=== PATIENT | female | born 1970 | race American Indian/Alaskan Native ===

== ENCOUNTER 2016-12-24 22:01 | Emergency (ER) | payer MEDICARE ==
[2016-12-24 23:10] LABS: Basophils % (Auto) 1.2 % (0.0-1.8); Eosinophils % (Auto) 7.5 % (0.0-4.3); Hematocrit 37.7 % (30.3-42.9); Hemoglobin 12.6 gm/dl (10.1-14.3); Mean Corpuscular HGB Conc 33 % (30-34); Mean Corpuscular Hemoglobin 32 pg (28-32); Mean Corpuscular Volume 95 fl (79-97); Platelet Count 234 K/mm3 (140-440); Red Blood Count 3.96 M/mm3 (3.65-5.03); Red Cell Distribution Width 14.1 % (13.2-15.2); White Blood Count 3.9 K/mm3 (4.5-11.0)
[2016-12-24 23:29] LABS: Anion Gap 17 mmol/L; BUN/Creatinine Ratio 12.85; Blood Urea Nitrogen 9 mg/dL (7-17); Calcium 8.2 mg/dL (8.4-10.2); Carbon Dioxide 23 mmol/L (22-30); Glucose 80 mg/dL (65-100); Potassium 3.5 mmol/L (3.6-5.0); Sodium 136 mmol/L (137-145)
[2016-12-25 01:29] LABS: Urine Drugs of Abuse Note Disclamer
[2016-12-25 02:13] LABS: Bacteria,Urine 1+ /HPF (Negative); Bilirubin,Urine NEG (Negative); Blood,Urine NEG (Negative); Ketones,Urine NEG (Negative); Mucus,Urine FEW /HPF; Nitrite,Urine NEG (Negative); Protein,Urine <15 mg/dL mg/dL (Negative); Urobilinogen,Urine < 2.0 mg/dL (<2.0)
[2016-12-25 02:14] LABS: Leukocyte Esterase,Urine MOD (Negative)
--- NOTE | 2016-12-25 07:19 | Emergency Department Report ---
ED Psych HPI - General Chief Complaint: Psych Stated Complaint: MED CLEARANCE Time Seen by Provider: 12/25/16 07:12 Source: patient Mode of arrival: Ambulatory Limitations: No Limitations - History of Present Illness Initial Comments: 46-year-old female presents to the emergency department from [facility] for medical clearance. Patient states that she is looking for alcohol detox. Patient states she has been drinking beer for the past one year. She normally drinks approximately 12 beers a day. Her last drink was yesterday afternoon at approximately 4 PM before going to [facility]. Patient describes a generalized ill feeling along with fatigue. She denies headache, chest pain, abdominal pain, nausea, or vomiting. There are no other complaints. -: Gradual, days(s) (1) Associated Psychiatric Symptoms: none History of same: Yes Quality: constant Improves With: none Worsens With: none Context: recent alcohol abuse Associated Symptoms: denies other symptoms Treatments Prior to Arrival: none - Related Data Home Medications Medication Instructions Recorded Confirmed Last Taken Dolutegravir Sodium [Tivicay] 10 mg PO DAILY 12/25/16 12/25/16 1 Day Ago 10 Emtricitab/Rilpiviri/Tenof Ala 1 each PO DAILY 12/25/16 12/25/16 1 Day Ago [Odefsey Tablet] 1 Zolpidem [Ambien] 10 mg PO QHS 12/25/16 12/25/16 1 Day Ago 10 traZODone [Desyrel] 50 mg PO QHS 12/25/16 12/25/16 1 Day Ago 50 valACYclovir [Valtrex] 500 mg PO BID 12/25/16 12/25/16 1 Day Ago 500 Allergies Allergy/AdvReac Type Severity Reaction Status Date / Time No Known Allergies Allergy Verified 12/24/16 22:33 ED Review of Systems ROS: Stated complaint: MED CLEARANCE Other details as noted in HPI Comment: All other systems reviewed and negative Psychiatric: as per HPI (substance abuse). denies: homicidal thoughts, suicidal thoughts ED Past Medical Hx - Past Medical History Previous Medical History?: Yes Hx HIV: Yes - Surgical History Past Surgical History?: Yes Additional Surgical History: Hammer toe both feet, Tonsils, Rt Lower leg - Family History Family history: no significant - Social History Smoking Status: Current Every Day Smoker Substance Use Type: Alcohol - Medications Home Medications: Home Medications Medication Instructions Recorded Confirmed Last Taken Type Dolutegravir Sodium [Tivicay] 10 mg PO DAILY 12/25/16 12/25/16 1 Day Ago History 10 Emtricitab/Rilpiviri/Tenof Ala 1 each PO DAILY 12/25/16 12/25/16 1 Day Ago History [Odefsey Tablet] 1 Zolpidem [Ambien] 10 mg PO QHS 12/25/16 12/25/16 1 Day Ago History 10 traZODone [Desyrel] 50 mg PO QHS 12/25/16 12/25/16 1 Day Ago History 50 valACYclovir [Valtrex] 500 mg PO BID 12/25/16 12/25/16 1 Day Ago History 500 ED Physical Exam - General Limitations: No Limitations General appearance: alert, in no apparent distress - Head Head exam: Present: atraumatic, normocephalic - Eye Eye exam: Present: normal appearance, PERRL, EOMI - ENT ENT exam: Present: normal exam, normal orophraynx, mucous membranes moist - Neck Neck exam: Present: normal inspection, full ROM. Absent: tenderness - Respiratory Respiratory exam: Present: normal lung sounds bilaterally. Absent: respiratory distress - Cardiovascular Cardiovascular Exam: Present: regular rate, normal rhythm, normal heart sounds - GI/Abdominal GI/Abdominal exam: Present: soft, normal bowel sounds. Absent: distended, tenderness - Extremities Exam Extremities exam: Present: normal inspection, full ROM. Absent: tenderness - Back Exam Back exam: Present: normal inspection, full ROM. Absent: tenderness - Neurological Exam Neurological exam: Present: alert, oriented X3. Absent: motor sensory deficit - Skin Skin exam: Present: warm, dry, intact ED Course Vital Signs 12/24/16 12/25/16 12/25/16 22:20 02:25 05:33 Temperature 98.1 F 98.1 F Pulse Rate 89 87 100 H Respiratory 14 16 18 Rate Blood Pressure 149/107 Blood Pressure 138/97 155/105 [Right] O2 Sat by Pulse 100 100 98 Oximetry 12/25/16 07:06 Temperature 98.6 F Pulse Rate 84 Respiratory 16 Rate Blood Pressure Blood Pressure 126/93 [Right] O2 Sat by Pulse 99 Oximetry ED Medical Decision Making - Lab Data Result diagrams: 12/24/16 22:54 12/24/16 22:54 - Medical Decision Making Laboratory results reviewed. Patient has been medically cleared. Patient has been evaluated by mental health and has been accepted at [facility]. Patient is currently awaiting transport. Patient is voluntary. - Differential Diagnosis alcohol abuse, alcohol intoxication Critical care attestation.: If time is entered above; I have spent that time in minutes in the direct care of this critically ill patient, excluding procedure time. ED Disposition Clinical Impression: Alcohol abuse Disposition: DC/TX PSY HOSP/PSY UNIT Is pt being admited?: No Condition: Stable Instructions: Abuse of Alcohol (ED) Referrals: TOBIAS YANEZ MD [Primary Care Provider] - 3-5 Days Time of Disposition: 08:53
[2016-12-25] MEDS: BENADRYL PO ONE (07:46)
[2016-12-25 07:55] LABS: Alanine Aminotransferase 9 units/L (7-56); Albumin 3.9 g/dL (3.9-5); Albumin/Globulin Ratio 1.3 %; Alkaline Phosphatase 57 units/L (35-129); Bilirubin,Total 0.3 mg/dL (0.1-1.2)
[2016-12-25 08:01] LABS: Bilirubin,Direct < 0.2 mg/dL (0-0.2)
[2016-12-25 09:16] VITALS: BP 129/84
== END 2016-12-25 09:46 ==
LOC: ED 22:01 → EEVIPCON 22:01 → ED 12-25 09:46
DX: F10.129 Alcohol abuse with intoxication, unspecified (principal); F17.200 Nicotine dependence, unspecified, uncomplicated; Z21 Asymptomatic human immunodeficiency virus [HIV] infection status
CPT/HCPCS: 36415; 80048; 80074; 80307; 81001; 84703; 85025; 99285; G0480; 80320

== ENCOUNTER 2018-12-18 18:23 | Emergency (ER) | payer MEDICARE ==
--- NOTE | 2018-12-18 18:38 | Emergency Department Report ---
Chief Complaint: Medical Clearance Stated Complaint: MEDICAL CLEARANCE Time Seen by Provider: 12/18/18 18:34 - HPI History of Present Illness: This is a 48 y.o. female that presents to ER for detox from alcohol. [facility] sent patient here for medical clearance. [facility] HIV Patient states she drunk 8 beers today. - Exam Vital Signs: Lab Results 12/18/18 Range/Units 18:35 POC Glucose 86 (70-105) Vital Signs 12/18/18 18:34 Temperature 97.6 F Pulse Rate 83 Respiratory 16 Rate Blood Pressure 131/90 O2 Sat by Pulse 100 Oximetry MSE screening note: Focused history and physical exam performed. Due to findings the following was ordered: labs acc for further evaluation ED Disposition for MSE Condition: Stable
[2018-12-18 19:13] LABS: Basophils % (Auto) 0.3 % (0.0-1.8); Eosinophils # (Auto) 0.2 K/mm3 (0.0-0.4); Eosinophils % (Auto) 9.9 % (0.0-4.3); Hematocrit 36.9 % (30.3-42.9); Hemoglobin 12.8 gm/dl (10.1-14.3); Lymphocytes # (Auto) 0.8 K/mm3 (1.2-5.4); Lymphocytes % (Auto) 35.6 % (13.4-35.0); Mean Corpuscular HGB Conc 35 % (30-34); Mean Corpuscular Volume 96 fl (79-97); Monocytes # (Auto) 0.2 K/mm3 (0.0-0.8); Monocytes % (Auto) 7.6 % (0.0-7.3); Platelet Count 209 K/mm3 (140-440); Red Blood Count 3.85 M/mm3 (3.65-5.03)
[2018-12-18 19:26] LABS: BUN/Creatinine Ratio 10; Blood Urea Nitrogen 6 mg/dL (7-17); Calcium 7.9 mg/dL (8.4-10.2); Hemolysis Index 21
[2018-12-18] MEDS ORDERED: VITAMIN B-1 100 MG, FOLVITE 1 MG, INFUVITE 10 ML in NACL 0.9% 1000 ML 1,000 ML IV ONE (20:00)
--- NOTE | 2018-12-18 20:31 | Emergency Department Report ---
HPI - General Chief Complaint: Medical Clearance Time Seen by Provider: 12/18/18 18:34 - HPI HPI: 48-year-old -[place] female presents to the emergency department from [facility] medical clearance. The patient has a known history of alcohol abuse a nd dependence and was trying to check herself into [facility] for some detox and rehabilitation from her alcohol abuse. However she was visibly intoxicated and there was concern that her alcohol level was too high and so she was sent here for a medical clearance. Patient denies any illicit drug use. She otherwise has a past medical history of HIV for which she says she is compliant with medications. ED Past Medical Hx - Past Medical History Previous Medical History?: Yes Hx HIV: Yes - Surgical History Past Surgical History?: Yes Additional Surgical History: Hammer toe both feet, Tonsils, Rt Lower leg - Social History Smoking Status: Never Smoker Substance Use Type: Alcohol - Medications Home Medications: Home Medications Medication Instructions Recorded Confirmed Last Taken Type No Known Home Medications [No 12/18/18 12/18/18 Unknown History Reported Home Medications] ED Review of Systems ROS: Stated complaint: MEDICAL CLEARANCE Other details as noted in HPI Comment: All other systems reviewed and negative Constitutional: denies: chills, fever Eyes: denies: eye pain, vision change ENT: denies: ear pain, throat pain Respiratory: denies: cough, shortness of breath Cardiovascular: denies: chest pain, palpitations Gastrointestinal: denies: abdominal pain, vomiting Genitourinary: denies: dysuria, discharge Musculoskeletal: denies: back pain, arthralgia Skin: denies: rash, lesions Neurological: denies: headache, weakness Psychiatric: denies: homicidal thoughts, suicidal thoughts Physical Exam - Physical Exam Vital Signs: Vital Signs 12/18/18 18:34 Temperature 97.6 F Pulse Rate 83 Respiratory 16 Rate Blood Pressure 131/90 O2 Sat by Pulse 100 Oximetry Physical Exam: GENERAL: The patient is well-developed well-nourished. HEENT: Normocephalic. Atraumatic. Patient has moist mucous membranes. EYES: Extraocular motions are intact. NECK: Supple. Trachea is midline. CHEST/LUNGS: Clear to auscultation. There is no respiratory distress noted. HEART/CARDIOVASCULAR: Regular. There is no tachycardia. There is no obvious murmur. ABDOMEN: Abdomen is soft, nontender. Patient has normal bowel sounds. There is no abdominal distention. SKIN: Skin is warm and dry. NEURO: The patient is awake, alert, and cooperative but intoxicated. The patient has no focal neurologic deficits. The patient has normal speech. MUSCULOSKELETAL: There is no tenderness or deformity. There is no limitation range of motion. There is no evidence of acute injury. ED Course Vital Signs 12/18/18 18:34 Temperature 97.6 F Pulse Rate 83 Respiratory 16 Rate Blood Pressure 131/90 O2 Sat by Pulse 100 Oximetry ED Medical Decision Making - Lab Data Result diagrams: 12/18/18 19:01 12/18/18 19:01 - Medical Decision Making This patient was sent from [facility], where she was trying to get alcohol detox and rehabilitation, secondary to her current alcohol abuse/intoxication. Patient has a blood alcohol of 0.38. The rest of her lab work is unremarkable. She is awake and cooperative but is obviously intoxicated. She was given a banana bag followed by a liter of IV normal saline fluid. The patient will be seen by the psych ignition specialist to help facilitate his return to work [place], or if necessary a different facility for alcohol detox/rehabilitation. I believe the patient will need to be below 0.20 blood alcohol level before she will be accepted to any facility. Critical Care Time: No Critical care attestation.: If time is entered above; I have spent that time in minutes in the direct care of this critically ill patient, excluding procedure time. ED Disposition Clinical Impression: Alcohol abuse Alcohol intoxication Qualifiers: Complication of substance-induced condition: uncomplicated Qualified Code(s): F10.920 - Alcohol use, unspecified with intoxication, uncomplicated Alcohol dependence Qualifiers: Substance use status: uncomplicated Qualified Code(s): F10.20 - Alcohol dependence, uncomplicated Disposition: DC/TX-65 PSY HOSP/PSY UNIT Is pt being admited?: No Condition: Stable Instructions: Alcohol Intoxication (ED), Abuse of Alcohol (ED) Referrals: PRIMARY CARE, [Primary Care Provider] - 3-5 Days Time of Disposition: 01:38
[2018-12-18 20:33] LABS: Bilirubin,Urine NEG (Negative); Blood,Urine NEG (Negative); Color,Urine Straw (Yellow); Protein,Urine <15 mg/dL mg/dL (Negative); Urobilinogen,Urine < 2.0 mg/dL (<2.0); WBC,Urine < 1.0 /HPF (0.0-6.0)
[2018-12-18] MEDS ORDERED: BENADRYL PO ONE ×2 (20:40→23:21)
[2018-12-18 20:41] LABS: Amphetamine Screen,Urine PRESUMPTIVE NEGATIVE; Benzodiazepines Screen,Urine PRESUMPTIVE NEGATIVE; Cannabinoid Screen,Urine PRESUMPTIVE NEGATIVE; Cocaine Screen,Urine PRESUMPTIVE NEGATIVE; Methadone Screen,Urine PRESUMPTIVE NEGATIVE; Opiate Screen,Urine PRESUMPTIVE NEGATIVE
[2018-12-18] MEDS ORDERED: NACL 0.9% 1000 ML 1,000 ML IV ONE (22:48)
[2018-12-19] MEDS ORDERED: NACL 0.9% 1000 ML 1,000 ML ONE (02:27)
[2018-12-19 09:08] VITALS: BP 143/98
== END 2018-12-19 09:56 ==
LOC: ED 18:23
DX: F10.220 Alcohol dependence with intoxication, uncomplicated (principal); Z21 Asymptomatic human immunodeficiency virus [HIV] infection status
CPT/HCPCS: 36415; 80048; 80307; 81001; 82962; 85025; 96365; 96366; 99283; G0480; J3411; J7030; 80320

== ENCOUNTER 2019-01-08 17:44 | Emergency (ER) | payer MEDICARE ==
[2019-01-08] MEDS ORDERED: ATIVAN IM PRN (19:00)
--- NOTE | 2019-01-08 19:01 | Emergency Department Report ---
ED Alcohol HPI - General Chief Complaint: Alcohol Stated Complaint: ETOH Time Seen by Provider: 01/08/19 18:56 Source: patient, EMS (ems notes not available at time of chart dictation), RN notes reviewed, old records reviewed Mode of arrival: Stretcher Limitations: Other (patient is intoxicated) - History of Present Illness Initial Comments: This is a 48-year-old female. The patient is not known to this provider previously. The patient is apparently brought to the hospital by emergency medical services for alcohol intoxication. Apparently, the patient was found in front of a local psychiatric facility trying to check in for intoxication, but w as sent in for medical clearance. Patient complains of chronic back pain. She makes no complaint of homicidality or suicidality. Patient may have had an oral glucose of 48 prior to arrival. She may be given oral glucose. We do not know because EMS records are not available at this time for evaluation or follow-up. In the emergency room, the patient is sleepy but arousable. She moves 4 extre mities. She complains of back pain. She asked for pain medicine. She may know complete of headache, neck pain, chest pain, abdominal pain or urinary symptoms. She does not complain of homicidality or suicidality. She is not accompanied by anyone. Therefore, collateral history is not available at this time. MD Complaint: alcohol intoxication Last Drink: unknown Chronic Alcohol Use: Yes Previous Visits for Alcohol Intoxication?: Yes - Related Data Previous Rx's Medication Instructions Recorded Last Taken Type Ondansetron [Zofran Odt] 4 mg PO Q8HR PRN #15 tab.rapdis 01/09/19 Unknown Rx chlordiazePOXIDE [Librium] 25 mg PO Q6H PRN #20 capsule 01/09/19 Unknown Rx Allergies Allergy/AdvReac Type Severity Reaction Status Date / Time No Known Allergies Allergy Verified 12/18/18 18:24 ED Review of Systems ROS: Stated complaint: ETOH Other details as noted in HPI Comment: Unobtainable due to pts medical conditions Cardiovascular: denies: chest pain Gastrointestinal: denies: abdominal pain Musculoskeletal: back pain Neurological: weakness Psychiatric: denies: homicidal thoughts, suicidal thoughts ED Past Medical Hx - Past Medical History Previous Medical History?: Yes Hx HIV: Yes - Surgical History Additional Surgical History: Hammer toe both feet, Tonsils, Rt Lower leg - Social History Smoking Status: Never Smoker Substance Use Type: Alcohol - Medications Home Medications: Home Medications Medication Instructions Recorded Confirmed Last Taken Type Ondansetron [Zofran Odt] 4 mg PO Q8HR PRN #15 tab.rapdis 01/09/19 Unknown Rx chlordiazePOXIDE [Librium] 25 mg PO Q6H PRN #20 capsule 01/09/19 Unknown Rx ED Physical Exam - General Limitations: Other (patient is intoxicated) General appearance: appears intoxicated - Head Head exam: Present: atraumatic, normocephalic - Eye Eye exam: Present: normal appearance, EOMI - ENT ENT exam: Present: mucous membranes dry, normal external ear exam - Neck Neck exam: Present: normal inspection, full ROM. Absent: tenderness, meningismus - Respiratory Respiratory exam: Present: normal lung sounds bilaterally. Absent: respiratory distress, rales, rhonchi, stridor - Cardiovascular Cardiovascular Exam: Present: regular rate, normal rhythm, normal heart sounds. Absent: bradycardia, tachycardia, irregular rhythm, systolic murmur, diastolic murmur, rubs, gallop - GI/Abdominal GI/Abdominal exam: Present: soft. Absent: distended, tenderness, guarding, rebound, rigid, pulsatile mass - Extremities Exam Extremities exam: Present: normal inspection, full ROM, other (2+ pulses noted in the bilateral upper, lower extremities. Compartments soft. No long bony tenderness. The pelvis is stable.). Absent: pedal edema, joint swelling, calf tenderness - Back Exam Back exam: Present: normal inspection, full ROM. Absent: tenderness, CVA tenderness (R), paraspinal tenderness, vertebral tenderness - Neurological Exam Neurological exam: Present: alert (the patient is alert to name. The patient follows commands), other (there is no facial droop. The patient moves 4 extremities spontaneously. There is 5 out of 5 strength in 4 extremities. The patient endorses sensation intact to light touch in 4 extremities. Detailed steven rologic examination not completed secondary to alcohol intoxication, patient's inability to cooperate with the exam.) - Psychiatric Psychiatric exam: Present: normal affect, normal mood - Skin Skin exam: Present: warm, dry, intact, normal color. Absent: rash ED Course Vital Signs 01/08/19 01/08/19 01/08/19 18:23 19:02 20:00 Temperature 98.3 F 98.6 F Pulse Rate 95 H 96 H Respiratory 12 12 Rate Blood Pressure 141/95 87/53 Blood Pressure 94/78 [Right] O2 Sat by Pulse 100 100 99 Oximetry 01/08/19 01/08/19 01/08/19 20:32 21:00 22:52 Temperature Pulse Rate 97 H Respiratory 16 20 Rate Blood Pressure 94/62 119/79 Blood Pressure [Right] O2 Sat by Pulse 98 100 Oximetry 01/08/19 01/09/19 01/09/19 23:00 00:00 01:00 Temperature Pulse Rate 100 H 88 96 H Respiratory 22 22 18 Rate Blood Pressure 124/88 124/88 125/81 Blood Pressure [Right] O2 Sat by Pulse 100 100 100 Oximetry 01/09/19 01/09/19 02:00 03:00 Temperature Pulse Rate 95 H 94 H Respiratory 22 22 Rate Blood Pressure 129/87 131/91 Blood Pressure [Right] O2 Sat by Pulse 99 100 Oximetry - Reevaluation(s) Reevaluation #1: 01/08/19 22:45 CT scan of the brain, cervical spine negative for acute disease. X-ray of the chest negative for acute disease. No acute distress . Reevaluation #2: 01/09/19 00:57 Patient walking with a steady gait. Patient in no acute distress at this time. Eating without difficulty. Blood sugar levels appear to be improved. Patient appears to be clinically sober at this time. She is in no acute distress. She was evaluated with crisis team. She is given outpatient resources. Reevaluation #3: 01/09/19 01:30 Repeat blood alcohol level still elevated. Care of a transient overnight physician, Dr. Ron Godwin to discharge once clinically sober. patient will be provided prescriptions for Librium and as needed Zofran. ED Medical Decision Making - Lab Data Result diagrams: 01/08/19 19:17 01/08/19 19:17 Vital Signs 01/08/19 01/08/19 01/08/19 18:23 19:02 20:32 Temperature 98.3 F 98.6 F Pulse Rate 95 H 96 H Respiratory 12 12 16 Rate Blood Pressure 141/95 Blood Pressure 94/78 [Right] O2 Sat by Pulse 100 100 Oximetry Lab Results 01/08/19 01/08/19 01/08/19 Range/Units 18:18 19:17 19:17 WBC 2.6 L (4.5-11.0) K/mm3 RBC 3.84 (3.65-5.03) M/mm3 Hgb 13.1 (10.1-14.3) gm/dl Hct 37.3 (30.3-42.9) % MCV 97 (79-97) fl MCH 34 H (28-32) pg MCHC 35 H (30-34) % RDW 13.8 (13.2-15.2) % Plt Count 400 (140-440) K/mm3 Lymph % (Auto) 41.1 H (13.4-35.0) % Park % (Auto) 6.0 (0.0-7.3) % Eos % (Auto) 10.3 H (0.0-4.3) % Baso % (Auto) 1.2 (0.0-1.8) % Lymph # 1.1 L (1.2-5.4) K/mm3 Park # 0.2 (0.0-0.8) K/mm3 Eos # 0.3 (0.0-0.4) K/mm3 Baso # 0.0 (0.0-0.1) K/mm3 Seg Neutrophils % 41.4 (40.0-70.0) % Seg Neutrophils # 1.1 L (1.8-7.7) K/mm3 Sodium 136 L (137-145) mmol/L Potassium 3.8 (3.6-5.0) mmol/L Chloride 101.1 (98-107) mmol/L Carbon Dioxide 23 (22-30) mmol/L Anion Gap 16 mmol/L BUN 7 (7-17) mg/dL Creatinine 0.8 (0.7-1.2) mg/dL Estimated GFR > 60 ml/min BUN/Creatinine Ratio 9 % Glucose 65 (65-100) mg/dL POC Glucose 79 (70-105) Calcium 8.8 (8.4-10.2) mg/dL Magnesium (1.7-2.3) mg/dL Total Creatine Kinase (30-135) units/L Salicylates (2.8-20.0) mg/dL Acetaminophen (10.0-30.0) ug/mL Plasma/Serum Alcohol (0-0.07) % 01/08/19 01/08/19 01/08/19 Range/Units 19:17 19:17 19:17 WBC (4.5-11.0) K/mm3 RBC (3.65-5.03) M/mm3 Hgb (10.1-14.3) gm/dl Hct (30.3-42.9) % MCV (79-97) fl MCH (28-32) pg MCHC (30-34) % RDW (13.2-15.2) % Plt Count (140-440) K/mm3 Lymph % (Auto) (13.4-35.0) % Park % (Auto) (0.0-7.3) % Eos % (Auto) (0.0-4.3) % Baso % (Auto) (0.0-1.8) % Lymph # (1.2-5.4) K/mm3 Park # (0.0-0.8) K/mm3 Eos # (0.0-0.4) K/mm3 Baso # (0.0-0.1) K/mm3 Seg Neutrophils % (40.0-70.0) % Seg Neutrophils # (1.8-7.7) K/mm3 Sodium (137-145) mmol/L Potassium (3.6-5.0) mmol/L Chloride (98-107) mmol/L Carbon Dioxide (22-30) mmol/L Anion Gap mmol/L BUN (7-17) mg/dL Creatinine (0.7-1.2) mg/dL Estimated GFR ml/min BUN/Creatinine Ratio % Glucose (65-100) mg/dL POC Glucose (70-105) Calcium (8.4-10.2) mg/dL Magnesium 1.80 (1.7-2.3) mg/dL Total Creatine Kinase 157 H (30-135) units/L Salicylates < 0.3 L (2.8-20.0) mg/dL Acetaminophen (10.0-30.0) ug/mL Plasma/Serum Alcohol 0.30 H (0-0.07) % 01/08/19 Range/Units 19:17 WBC (4.5-11.0) K/mm3 RBC (3.65-5.03) M/mm3 Hgb (10.1-14.3) gm/dl Hct (30.3-42.9) % MCV (79-97) fl MCH (28-32) pg MCHC (30-34) % RDW (13.2-15.2) % Plt Count (140-440) K/mm3 Lymph % (Auto) (13.4-35.0) % Park % (Auto) (0.0-7.3) % Eos % (Auto) (0.0-4.3) % Baso % (Auto) (0.0-1.8) % Lymph # (1.2-5.4) K/mm3 Park # (0.0-0.8) K/mm3 Eos # (0.0-0.4) K/mm3 Baso # (0.0-0.1) K/mm3 Seg Neutrophils % (40.0-70.0) % Seg Neutrophils # (1.8-7.7) K/mm3 Sodium (137-145) mmol/L Potassium (3.6-5.0) mmol/L Chloride (98-107) mmol/L Carbon Dioxide (22-30) mmol/L Anion Gap mmol/L BUN (7-17) mg/dL Creatinine (0.7-1.2) mg/dL Estimated GFR ml/min BUN/Creatinine Ratio % Glucose (65-100) mg/dL POC Glucose (70-105) Calcium (8.4-10.2) mg/dL Magnesium (1.7-2.3) mg/dL Total Creatine Kinase (30-135) units/L Salicylates (2.8-20.0) mg/dL Acetaminophen < 5.0 L (10.0-30.0) ug/mL Plasma/Serum Alcohol (0-0.07) % - EKG Data -: EKG Interpreted by Wi EKG shows normal: sinus rhythm Rate: normal - EKG Data 01/08/19 21:26 Sinus rhythm, normal axis, QTC 444 ms, T wave inversion V2, poor R-wave progression, this is an abnormal EKG, the patient is chest pain, heart rate 87 bpm, this is not consistent with ST elevation myocardial infarction. - Radiology Data Radiology results: image reviewed interpreted by me: X-ray the chest is negative for acute disease Critical care attestation.: If time is entered above; I have spent that time in minutes in the direct care of this critically ill patient, excluding procedure time. ED Disposition Clinical Impression: Alcohol dependence Disposition: DC-01 TO HOME OR SELFCARE Is pt being admited?: No Does the pt Need Aspirin: No Condition: Good Instructions: Alcohol Intoxication (ED), Alcohol Withdrawal (ED) Additional Instructions: Take the medications as needed/directed for nausea, vomiting and cessation of alcohol withdrawal. Follow up with the outpatient resources that were provided for the patient for alcohol detox/rehabilitation. I recommend the patient follow up as soon as possible with her outpatient rehabilitation program. The patient should follow- up with an outpatient primary care doctor within the next month. Return to the emergency room right away or projectile vomiting, change in mental status, confusion, inability to tolerate liquid feeds, new, worsening or different symptoms. Prescriptions: chlordiazePOXIDE [Librium] 25 mg PO Q6H PRN #20 capsule PRN Reason: Alcohol Withdrawal Ondansetron [Zofran Odt] 4 mg PO Q8HR PRN #15 tab.rapdis PRN Reason: Nausea Referrals: MAYLIN FRITZ MD [Primary Care Provider] - 3-5 Days
[2019-01-08] MEDS ORDERED: D50W (25GM) Vial IV PRN (19:40)
[2019-01-08] MEDS ORDERED: LIBRIUM PO PRN (19:40)
[2019-01-08] MEDS ORDERED: ATIVAN PO PRN ×2 (19:40)
[2019-01-08 19:46] LABS: Basophils % (Auto) 1.2 % (0.0-1.8); Eosinophils # (Auto) 0.3 K/mm3 (0.0-0.4); Eosinophils % (Auto) 10.3 % (0.0-4.3); Hematocrit 37.3 % (30.3-42.9); Hemoglobin 13.1 gm/dl (10.1-14.3); Lymphocytes # (Auto) 1.1 K/mm3 (1.2-5.4); Lymphocytes % (Auto) 41.1 % (13.4-35.0); Mean Corpuscular HGB Conc 35 % (30-34); Mean Corpuscular Volume 97 fl (79-97); Monocytes # (Auto) 0.2 K/mm3 (0.0-0.8); Platelet Count 400 K/mm3 (140-440); Red Blood Count 3.84 M/mm3 (3.65-5.03); Red Cell Distribution Width 13.8 % (13.2-15.2)
[2019-01-08] MEDS ORDERED: D5/0.45NS 1,000 ML IV SCH (20:00)
[2019-01-08 20:04] LABS: BUN/Creatinine Ratio 9; Blood Urea Nitrogen 7 mg/dL (7-17); Calcium 8.8 mg/dL (8.4-10.2); Hemolysis Index 12
[2019-01-08] MEDS ORDERED: TYLENOL PO ONE (20:30)
[2019-01-08] MEDS ORDERED: TYLENOL ONE (20:37)
[2019-01-08] MEDS ORDERED: D50W (25GM) Vial IV ONE (20:40)
[2019-01-08] MEDS ORDERED: D50W (25GM) Syringe IV ONE ×2 (21:25→22:19)
--- NOTE | 2019-01-08 21:39 | XRay Report ---
PROCEDURE: XR CHEST 1V AP TECHNIQUE: Single AP view of the chest HISTORY: hypoglycemia, etoh COMPARISONS: FINDINGS: Cardiac and mediastinal contours are unremarkable. Pulmonary vasculature is unremarkable. No focal pu lmonary infiltrate identified. No pleural fluid collection seen. Nipple shadow overlies the right hem ithorax. IMPRESSION: Negative single view of the chest. This document is electronically signed by Osito Black MD., Jan 08 2019 09:36:49 PM ET
--- NOTE | 2019-01-08 22:01 | Cat Scan Report ---
PROCEDURE: CT HEAD/BRAIN WO CON TECHNIQUE: Spiral CT imaging of the brain was obtained without the use of IV contrast. HISTORY: etoh found down ams COMPARISONS: None FINDINGS: Brain: There is no evidence of intracranial hemorrhage. No parenchymal hemorrhage is seen. No mass lesions or mass effect is identified. No abnormal extra-axial fluid collections or masses are seen. Nonspecific mineralization of the basal ganglia are visualized. There is some decreased density seen in the periventricular white matter without mass effect. This i s fairly symmetric and does not exhibit any mass effect consistent with gliosis probably on the basis of microvascular disease or white matter changes of aging. Ventricles: The ventricles, sulcal pattern and fissures are prominent consistent with atrophy. Bone Windows: No evidence of fracture. Paranasal sinuses: Visualized portions are clear. Mastoid air cells: Clear. IMPRESSION: No acute abnormalities identified. There is evidence of minimal atrophy and gliosis. This document is electronically signed by Luther Nunez MD., Jan 08 2019 10:00:03 PM ET
--- NOTE | 2019-01-08 22:44 | Cat Scan Report ---
PROCEDURE: CT CERVICAL SPINE WO CON TECHNIQUE: Spiral CT imaging of the cervical spine was obtained. Computer generated sagittal and cor onal reconstructions were created and displayed for review. HISTORY: etoh found down ams COMPARISONS: None FINDINGS: No fracture or subluxation is visualized. The prevertebral soft tissues appear normal. The posterior elements are intact Bridging anterior osteophytic spurs visualized at C5-C6. Moderate size anterior osteophytic spurs vis ualized at C4-C5. Small posterior osteophytic spurs are present at C3-4, C4-5, C5-6 disc spaces. Post erior osteophytic spurs are causing mild impressions on the anterior epidural space without cord comp ression or spinal stenosis. No focal disc herniations are identified. IMPRESSION: No evidence of fracture or subluxation. Degenerative disc changes are present as described. This document is electronically signed by Luther Nunez MD., Jan 08 2019 10:42:33 PM ET
[2019-01-09 01:07] LABS: Color,Urine Straw (Yellow)
[2019-01-09 01:08] LABS: Bilirubin,Urine NEG (Negative); Blood,Urine NEG (Negative); Mucus,Urine FEW /HPF; Protein,Urine <15 mg/dL mg/dL (Negative); Urobilinogen,Urine < 2.0 mg/dL (<2.0)
[2019-01-09 01:13] LABS: Amphetamine Screen,Urine PRESUMPTIVE NEGATIVE; Benzodiazepines Screen,Urine PRESUMPTIVE NEGATIVE; Cannabinoid Screen,Urine PRESUMPTIVE NEGATIVE; Cocaine Screen,Urine PRESUMPTIVE NEGATIVE; Methadone Screen,Urine PRESUMPTIVE NEGATIVE; Opiate Screen,Urine PRESUMPTIVE NEGATIVE
[2019-01-09 03:32] VITALS: BP 131/91
== END 2019-01-09 03:32 | disposition home or self-care (01) ==
LOC: ED 17:44
DX: F10.229 Alcohol dependence with intoxication, unspecified (principal)
CPT/HCPCS: 36415; 70450; 71045; 72125; 80048; 80307; 81001; 82550; 82962; 83735; 85025; 93005; 93010; 96374; 96375; 99285; G0480; 80320